=== PATIENT | male | born 1975 | race Hispanic/Latino ===

== ENCOUNTER 2018-01-25 13:36 | Emergency (ER) | payer BC ==
[2018-01-25 15:24] LABS: Absolute Lymphocytes (CBC) 1.9 K/uL (0.7-4.9); Absolute Monocytes 0.5 K/uL (0.1-1.3); Absolute Neutrophil 4.2 K/uL (1.8-8.0); Basophils % 0.4 % (0-1.3); Eosinophils % 1.3 % (0-4.4); Hematocrit 43.7 % (39.6-49.0); Lymphocytes % 28.4 % (15.3-44.8); MCH 30.4 pg (27.0-35.0); MCV 90.7 fL (80-100); MPV 10.2 fL (7.6-11.3); RBC Red Blood Cell Count 4.82 M/uL (4.33-5.43)
--- NOTE | 2018-01-25 15:24 | RAD REPORT ---
EXAM DESCRIPTION: RAD - Chest Single View - 01/25/2018 3:19 pm CLINICAL HISTORY: Chest pain. COMPARISON: 09/30/2014 FINDINGS: Portable technique limits examination quality. The lungs are grossly clear. The heart is normal in size. No displaced fractures. IMPRESSION: No acute intrathoracic process suspected.
[2018-01-25 15:28] LABS: Protime INR 0.98
[2018-01-25 15:31] LABS: Potassium 4.2 mEq/L (3.6-5.0)
[2018-01-25 15:37] LABS: Albumin 3.6 g/dL (3.2-5.5); Bilirubin Direct 0.1 mg/dL (0-0.2); Bilirubin Total 0.7 mg/dL (0.3-1.2); Magnesium 2.1 mg/dL (1.8-2.5); Protein, Total 7.2 g/dL (6.0-8.3)
[2018-01-25 15:38] LABS: CKMB Creatine Kinase MB 0.6 ng/ml (0.3-4.0)
[2018-01-25] MEDS ORDERED: SMZ./TMP. 800/160 MG TABLET ONE (15:41)
[2018-01-25] MEDS ORDERED: DOXYCYCLINE 100 MG CAP PO ONE (15:42)
[2018-01-25] MEDS ORDERED: MUPIROCIN 2% OINT 22GM TUBE TOP ONE (15:42)
[2018-01-25] MEDS ORDERED: NA CHLORIDE 0.9% 1,000 ML ONE ×2 (15:42→16:00)
--- NOTE | 2018-01-25 15:52 | EDPHYS ---
Physician Documentation [facility] Name: Bran Arnold Sr Age: 42 yrs Sex: Male : 1975 Arrival Date: 01/25/2018 Time: 13:41 Bed 13 Private MD: ED Physician Frankie Dennis HPI: 01/25 15:14 This 42 yrs old Male presents to ER via Ambulatory with complaints of SENT BY neymar GUTIERREZ, INFECTION. 15:14 The patient or guardian reports decreased range of motion, pain, swelling, tenderness. neymar The complaints affect the right hand diffusely. Context: The problem was sustained at an unknown location. Onset: The symptoms/episode began/occurred 3 day(s) ago. Modifying factors: The symptoms are alleviated by nothing, the symptoms are aggravated by nothing. Associated signs and symptoms: The patient has no apparent associated signs or symptoms. Severity of symptoms: At their worst the symptoms were mild, moderate, in the emergency department the symptoms are unchanged. Historical: - Allergies: 13:48 No Known Allergies; aj - Home Meds: 13:48 gabapentin Oral [Active]; Tramadol Oral [Active]; Levemir subcutaneous [Active]; aj - PMHx: 13:48 Diabetes - IDDM; neuropathy; aj - PSHx: 13:48 Hernia repair; aj - Immunization history:: Adult Immunizations up to date. - Social history:: Smoking status: Patient/guardian denies using tobacco. - Family history:: not pertinent. ROS: 15:14 Constitutional: Negative for fever, chills, and weight loss, Eyes: Negative for injury, neymar pain, redness, and discharge, ENT: Negative for injury, pain, and discharge, Neck: Negative for injury, pain, and swelling, Cardiovascular: Negative for chest pain, palpitations, and edema, Respiratory: Negative for shortness of breath, cough, wheezing, and pleuritic chest pain, Abdomen/GI: Negative for abdominal pain, nausea, vomiting, diarrhea, and constipation, Back: Negative for injury and pain, : Negative for injury, bleeding, discharge, and swelling, Skin: Negative for injury, rash, and discoloration, Neuro: Negative for headache, weakness, numbness, tingling, and seizure, Psych: Negative for depression, anxiety, suicide ideation, homicidal ideation, and hallucinations, Allergy/Immunology: Negative for hives, rash, and allergies, Endocrine: Negative for neck swelling, polydipsia, polyuria, polyphagia, and marked weight changes, Hematologic/Lymphatic: Negative for swollen nodes, abnormal bleeding, and unusual bruising. 15:14 MS/extremity: Positive for decreased range of motion, pain, tenderness, of the right hand. Exam: 15:14 Constitutional: This is a well developed, well nourished patient who is awake, alert, neymar and in no acute distress. Head/Face: Normocephalic, atraumatic. Eyes: Pupils equal round and reactive to light, extra-ocular motions intact. Lids and lashes normal. Conjunctiva and sclera are non-icteric and not injected. Cornea within normal limits. Periorbital areas with no swelling, redness, or edema. ENT: Nares patent. No nasal discharge, no septal abnormalities noted. Tympanic membranes are normal and external auditory canals are clear. Oropharynx with no redness, swelling, or masses, exudates, or evidence of obstruction, uvula midline. Mucous membranes moist. Neck: Trachea midline, no thyromegaly or masses palpated, and no cervical lymphadenopathy. Supple, full range of motion without nuchal rigidity, or vertebral point tenderness. No Meningismus. Chest/axilla: Normal chest wall appearance and motion. Nontender with no deformity. No lesions are appreciated. Cardiovascular: Regular rate and rhythm with a normal S1 and S2. No gallops, murmurs, or rubs. Normal PMI, no JVD. No pulse deficits. Respiratory: Lungs have equal breath sounds bilaterally, clear to auscultation and percussion. No rales, rhonchi or wheezes noted. No increased work of breathing, no retractions or nasal flaring. Abdomen/GI: Soft, non-tender, with normal bowel sounds. No distension or tympany. No guarding or rebound. No evidence of tenderness throughout. Back: No spinal tenderness. No costovertebral tenderness. Full range of motion. Male : Normal genitalia with no discharge or lesions. Skin: Warm, dry with normal turgor. Normal color with no rashes, no lesions, and no evidence of cellulitis. Neuro: Awake and alert, GCS 15, oriented to person, place, time, and situation. Cranial nerves II-XII grossly intact. Motor strength 5/5 in all extremities. Sensory grossly intact. Cerebellar exam normal. Normal gait. Psych: Awake, alert, with orientation to person, place and time. Behavior, mood, and affect are within normal limits. 15:14 Musculoskeletal/extremity: Extremities: noted in the right hand: erythema, pain, ROM: full active range of motion, full passive range of motion, Circulation is intact in all extremities. Sensation intact. Compartment Syndrome exam of affected extremity: is normal. DVT Exam: No signs of deep vein thrombosis. no swelling, no tenderness, negative Homans' sign noted on exam, no appreciated bluish discoloration, no increased warmth, pain, erythema. Vital Signs: 13:48 BP 103 / 82; Pulse 108; Resp 20; Temp 99.2; Pulse Ox 98% on R/A; Weight 68.04 kg; aj Height 5 ft. 1 in. (154.94 cm); Pain 0/10; 15:30 BP 110 / 82; Pulse 99; Resp 18; Pulse Ox 98% on R/A; ph 17:24 BP 115 / 78; Pulse 91; Resp 18; Temp 98.9; Pulse Ox 99% on R/A; ph 13:48 Body Mass Index 28.34 (68.04 kg, 154.94 cm) aj MDM: 14:05 Patient medically screened. [facility] 15:16 Data reviewed: vital signs, nurses notes, lab test result(s), EKG, radiologic studies, neymar plain films. 01/25 14:49 Order name: Basic Metabolic Panel; Complete Time: 15:44 ph 01/25 14:49 Order name: BNP; Complete Time: 15:44 ph 01/25 14:49 Order name: CBC with Diff; Complete Time: 15:44 ph 01/25 14:49 Order name: Ckmb; Complete Time: 15:44 ph 01/25 14:49 Order name: CPK; Complete Time: 15:44 ph 01/25 14:49 Order name: LFT's; Complete Time: 15:44 ph 01/25 14:49 Order name: Magnesium; Complete Time: 15:44 ph 01/25 14:49 Order name: PT-INR; Complete Time: 15:44 ph 01/25 14:49 Order name: Ptt, Activated; Complete Time: 15:44 ph 01/25 14:49 Order name: Troponin (emerg Dept Use Only); Complete Time: 15:44 ph 01/25 14:49 Order name: Blood Culture Adult (2) ph 01/25 14:49 Order name: Procalcitonin ph 01/25 14:49 Order name: Lactate; Complete Time: 15:44 ph 01/25 16:57 Order name: Glucose, Ancillary Testing EDMS 01/25 14:49 Order name: XRAY Chest (1 view); Complete Time: 15:44 ph 01/25 14:49 Order name: EKG; Complete Time: 14:50 ph 01/25 14:49 Order name: Cardiac monitoring; Complete Time: 15:16 ph 01/25 14:49 Order name: EKG - Nurse/Tech ph 01/25 14:49 Order name: IV Saline Lock; Complete Time: 15:16 ph 01/25 14:49 Order name: Labs collected and sent; Complete Time: 15:16 ph 01/25 14:49 Order name: O2 Per Protocol; Complete Time: 15:16 ph 01/25 14:49 Order name: O2 Sat Monitoring; Complete Time: 15:17 ph Administered Medications: 15:51 Drug: Bactrim (160 mg-800 mg (DS) 1 tablet Route: PO; ph 17:21 Follow up: Response: No adverse reaction ph 15:51 Drug: Doxycycline 200 mg Route: PO; ph 17:22 Follow up: Response: No adverse reaction ph 15:52 Drug: NS 0.9% 1000 ml Route: IV; Rate: 1 bolus; Site: left forearm; ph 17:22 Follow up: Response: No adverse reaction; IV Status: Completed infusion ph 15:54 Drug: Bactroban Ointment 2 % 1 application {Note: applied to R hand.} Route: Topical; ph Site: affected area; 17:22 Follow up: Response: No adverse reaction ph 16:05 Drug: Insulin Regular Human 10 units {Co-Signature: rb1 (Suyapa Contreras RN).} Route: ph IVP; Site: left forearm; 17:23 Follow up: Response: No adverse reaction; Blood sugar is lowered ph 16:05 Drug: Insulin Regular Human 10 units {Co-Signature: rb1 (Suyapa Contreras RN).} Route: ph Sub-Q; Site: right upper arm; 17:23 Follow up: Response: No adverse reaction; Blood sugar is lowered ph 17:21 Not Given (Other Intervention Used): NS 0.9% 1000 ml IV at 1 bolus Per protocol; 1000 ph mL bolus Disposition: 01/25/18 15:51 Discharged to Home. Impression: Cellulitis and acute lymphangitis of other parts of limb - hand, Type 1 diabetes mellitus. - Condition is Stable. - Discharge Instructions: Type 1 Diabetes Mellitus, Adult, Cellulitis, [id number]. - Prescriptions for Bactroban 2 % Topical Ointment - Apply to affected area 1 application by TOPICAL route every 12 hours; 30 gram. Doxycycline Hyclate 100 mg Oral Tablet - take 1 tablet by ORAL route every 12 hours; 20 tablet. Bactrim DS 800- 160 mg Oral Tablet - take 1 tablet by ORAL route every 12 hours for 10 days; 20 tablet. - Medication Reconciliation Form, Thank You Letter, Antibiotic Education, Prescription Opioid Use, Work release form, Family Work Release form. - Follow up: Private Physician; When: 2 - 3 days; Reason: Recheck today's complaints, Continuance of care, Re-evaluation by your physician. Follow up: A Poe; When: 2 - 3 days; Reason: Recheck today's complaints, Continuance of care, Re-evaluation by your physician. - Problem is new. - Symptoms have improved. Signatures: Dispatcher [employer] EDAzalea Nicholson RN RN aj Anderson, Corey, MD MD cha Hall, Patricia, RN RN ph Suyapa Contreras RN rb1 Corrections: (The following items were deleted from the chart) 17:25 15:51 01/25/2018 15:51 Discharged to Home. Impression: Cellulitis and acute ph lymphangitis of other parts of limb - hand; Type 1 diabetes mellitus. Condition is Stable. Discharge Instructions: Type 1 Diabetes Mellitus, Adult, Cellulitis, [id number]. Prescriptions for Bactroban 2 % Topical Ointment - Apply to affected area 1 application by TOPICAL route every 12 hours; 30 gram, Doxycycline Hyclate 100 mg Oral Tablet - take 1 tablet by ORAL route every 12 hours; 20 tablet, Bactrim DS 800-160 mg Oral Tablet - take 1 tablet by ORAL route every 12 hours for 10 days; 20 tablet. and Forms are Medication Reconciliation Form, Thank You Letter, Antibiotic Education, Prescription Opioid Use. Follow up: Private Physician; When: 2 - 3 days; Reason: Recheck today's complaints, Continuance of care, Re-evaluation by your physician. Follow up: A Deepika; When: 2 - 3 days; Reason: Recheck today's complaints, Continuance of care, Re-evaluation by your physician. Problem is new. Symptoms have improved. neymar
--- NOTE | 2018-01-25 15:52 | ER ---
Nurse's Notes [facility] Name: Bran Arnold Sr Age: 42 yrs Sex: Male : 1975 Arrival Date: 01/25/2018 Time: 13:41 Bed 13 Private MD: Diagnosis: Cellulitis and acute lymphangitis of other parts of limb-hand;Type 1 diabetes mellitus Presentation: 01/25 13:46 Presenting complaint: Patient states: Red spot on top of right hand for 1 week. Small aj amount of redness moving up hand to forearm. Transition of care: patient was not received from another setting of care. Onset of symptoms was January 18, 2018. Initial Sepsis Screen: Does the patient meet any 2 criteria? No. Patient's initial sepsis screen is negative. Does the patient have a suspected source of infection? No. Patient's initial sepsis screen is negative. Care prior to arrival: None. 13:46 Method Of Arrival: Ambulatory aj 13:46 Acuity: PRESLEY 3 aj Triage Assessment: 13:48 General: Appears in no apparent distress. comfortable, Behavior is calm, cooperative, aj appropriate for age. Pain: Denies pain. Neuro: Level of Consciousness is awake, alert, obeys commands, Oriented to person, place, time, situation, Appropriate for age. Respiratory: Airway is patent Respiratory effort is even, unlabored, Respiratory pattern is regular, symmetrical. Derm: Skin is intact, is healthy with good turgor, Skin is pink, warm \T\ dry. normal, Wound noted dorsum of right hand. Historical: - Allergies: 13:48 No Known Allergies; aj - Home Meds: 13:48 gabapentin Oral [Active]; Tramadol Oral [Active]; Levemir subcutaneous [Active]; aj - PMHx: 13:48 Diabetes - IDDM; neuropathy; aj - PSHx: 13:48 Hernia repair; aj - Immunization history:: Adult Immunizations up to date. - Social history:: Smoking status: Patient/guardian denies using tobacco. - Family history:: not pertinent. Screenin:44 Abuse screen: Denies threats or abuse. Denies injuries from another. Nutritional ph screening: No deficits noted. Tuberculosis screening: No symptoms or risk factors identified. Fall Risk None identified. Assessment: 14:35 General: Appears in no apparent distress. comfortable, slender, well groomed, Behavior ph is calm, cooperative, appropriate for age, Denies fever, feeling ill. Pain: Denies pain. Neuro: Level of Consciousness is awake, alert, obeys commands, Oriented to person, place, time, situation. Cardiovascular: Capillary refill < 3 seconds Patient's skin is warm and dry. Respiratory: Airway is patent Respiratory effort is even, unlabored. GI: Patient currently denies diarrhea, nausea, vomiting. Derm: Skin is healthy with good turgor, Skin is pink, warm \T\ dry. Wound noted dorsum of right hand Wound is small scab noted to back of R hand w/ redness spreading to R wrist. Musculoskeletal: Circulation, motion, and sensation intact. Range of motion: intact in all extremities. 16:00 Reassessment: Patient appears in no apparent distress at this time. Patient and/or ph family updated on plan of care and expected duration. Pain level reassessed. Patient is alert, oriented x 3, equal unlabored respirations, skin warm/dry/pink. D/C pending completion of IV and lower BGL, Patient denies pain at this time. 17:17 Reassessment: Patient appears in no apparent distress at this time. Patient and/or ph family updated on plan of care and expected duration. Pain level reassessed. Patient is alert, oriented x 3, equal unlabored respirations, skin warm/dry/pink. BGL decreased, pt discharged home with family. Vital Signs: 13:48 BP 103 / 82; Pulse 108; Resp 20; Temp 99.2; Pulse Ox 98% on R/A; Weight 68.04 kg; aj Height 5 ft. 1 in. (154.94 cm); Pain 0/10; 15:30 BP 110 / 82; Pulse 99; Resp 18; Pulse Ox 98% on R/A; ph 17:24 BP 115 / 78; Pulse 91; Resp 18; Temp 98.9; Pulse Ox 99% on R/A; ph 13:48 Body Mass Index 28.34 (68.04 kg, 154.94 cm) ED Course: 13:41 Patient arrived in ED. sb2 13:47 Triage completed. aj 13:48 Arm band placed on left wrist. Patient placed in an exam room. aj 14:05 Frankie Dennis MD is Attending Physician. [facility] 14:08 Re Ramirez, RN is Primary Nurse. ph 14:44 Patient has correct armband on for positive identification. Bed in low position. Call ph light in reach. Side rails up X 1. Pulse ox on. NIBP on. Warm blanket given. 15:15 No provider procedures requiring assistance completed. Inserted saline lock: 22 gauge ph in left forearm, using aseptic technique. 15:17 XRAY Chest (1 view) In Process Unspecified. EDMS 15:17 X-ray completed. Portable x-ray completed in exam room. Patient tolerated procedure kp1 well. 15:51 Aubrey Poe MD is Referral Physician. neymar 17:18 IV discontinued, intact, bleeding controlled, No redness/swelling at site. Pressure ph dressing applied. Administered Medications: 15:51 Drug: Bactrim (160 mg-800 mg (DS) 1 tablet Route: PO; ph 17:21 Follow up: Response: No adverse reaction ph 15:51 Drug: Doxycycline 200 mg Route: PO; ph 17:22 Follow up: Response: No adverse reaction ph 15:52 Drug: NS 0.9% 1000 ml Route: IV; Rate: 1 bolus; Site: left forearm; ph 17:22 Follow up: Response: No adverse reaction; IV Status: Completed infusion ph 15:54 Drug: Bactroban Ointment 2 % 1 application {Note: applied to R hand.} Route: Topical; ph Site: affected area; 17:22 Follow up: Response: No adverse reaction ph 16:05 Drug: Insulin Regular Human 10 units {Co-Signature: rb1 (Suyapa Contreras RN).} Route: ph IVP; Site: left forearm; 17:23 Follow up: Response: No adverse reaction; Blood sugar is lowered ph 16:05 Drug: Insulin Regular Human 10 units {Co-Signature: rb1 (Suyapa Contreras RN).} Route: ph Sub-Q; Site: right upper arm; 17:23 Follow up: Response: No adverse reaction; Blood sugar is lowered ph 17:21 Not Given (Other Intervention Used): NS 0.9% 1000 ml IV at 1 bolus Per protocol; 1000 ph mL bolus Outcome: 15:51 Discharge ordered by . neymar 17:18 Discharged to home ambulatory, with family. ph 17:18 Condition: good 17:18 Discharge instructions given to patient, Instructed on discharge instructions, follow up and referral plans. medication usage. 17:25 Patient left the ED. ph Signatures: Dispatcher [employer] Azalea Finnegan RN RN aj Anderson, Corey, MD MD cha Hall, Patricia, RN RN ph Poole, Kathy kp1 Christin Espitia sb2 Suyapa Contreras RN rb1
[2018-01-25] MEDS ORDERED: INSULIN -REGULAR HUMAN 50 UNIT/0.5 ML ML ONE (15:59)
--- NOTE | 2018-01-26 10:31 | EKG ---
Test Date: 2018-01-25 Test Time: 15:03:29 Ice House Supervisor: JAMIE MEASUREMENT RESULTS: Intervals: Rate: 92 KS: 140 QRSD: 96 QT: 354 QTc: 437 [place]: P: 42 KS: 140 QRS: 78 T: 55 INTERPRETIVE STATEMENTS: Normal sinus rhythm Normal ECG Compared to ECG 05/01/2017 20:22:10 Right-axis deviation no longer present Electronically Signed On 01-26-18 10:27:26 CDT by Nile King
== END 2018-01-25 17:25 | disposition home or self-care (01) ==
LOC: ER 13:36
DX: L03.113 Cellulitis of right upper limb (principal); I89.1 Lymphangitis; E10.8 Type 1 diabetes mellitus with unspecified complications
CPT/HCPCS: 36415; 71045; 80048; 80076; 82550; 82553; 82962; 83605; 83735; 83880; 84145; 84484; 85025; 85610; 85730; 87040; 93005; 96361; 96372; 96374; 99284; J7030

== ENCOUNTER 2018-07-02 21:16 | Emergency (ER) | payer BC ==
--- OUTSIDE RECORDS SUMMARY | 2018-07-02 21:17 | XMS REPORT ---
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
--- OUTSIDE RECORDS SUMMARY | 2018-07-02 21:17 | XMS REPORT ---
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 Active mellitus Problem Depression with anxiety F41.8 Active Problem Type 2 diabetes mellitus with other E11.69 Active specified complication Problem Erectile dysfunction, unspecified N52.9 Active erectile dysfunction type Assessment Erectile dysfunction, unspecified N52.9 Active erectile dysfunction type 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 Assessment Depression with anxiety F41.8 Active Assessment Decreased libido R68.82 Active Assessment 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 Active mellitus Medications Medication Code Code Instructions Start End Status Dosage System Date Date Gabapentin ND 01637001355 800 MG Orally Active 1 tablet Twice a day NovoLog ND 81291082253 100 UNIT/ML Inactive not Subcutaneous defined Jardiance ND 81108237920 10 MG Orally March 02May Active 1 tablet Once a day 2017 Tresiba ND 23204177664 200 UNIT/ML March 02 Inject 60 FlexTouch Subcutaneous 2018 units once a day Atorvastatin ND 60558895541 10 MG Orally March 02, Active 1 tablet Calcium Once a day 2017 Fluoxetine HCl ND 63811999304 40 MG Orally Active 1 capsule Once a day Levemir ND 15955180144 100 UNIT/ML Inactive not Subcutaneous defined Metformin HCl ND 98679473507 1000 MG Orally Active 1 tablet Twice a day with a meal Results No Known Results Summary Purpose [employer] Submission
--- OUTSIDE RECORDS SUMMARY | 2018-07-02 21:17 | XMS REPORT ---
:1975 Author Organization [employer] Care Team Providers Name Role Phone Rudolph Santa Provider Role Unavailable Allergies, Adverse Reactions, Alerts Substance Reaction Event Type N.K.D.A. 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 01483240034 100 UNIT/ML Active not Subcutaneous defined Fluoxetine HCl [facility] 75982486526 40 MG Orally Active 1 capsule Once a day NovoLog ND 52762691113 100 UNIT/ML Active not Subcutaneous defined Gabapentin [facility] 79012646331 800 MG Orally Active 1 tablet Twice a day Results No Known Results Summary Purpose [employer] Submission
--- OUTSIDE RECORDS SUMMARY | 2018-07-02 21:18 | XMS REPORT ---
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
--- OUTSIDE RECORDS SUMMARY | 2018-07-02 21:18 | XMS REPORT ---
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
--- OUTSIDE RECORDS SUMMARY | 2018-07-02 21:18 | XMS REPORT ---
:1975 Author Organization eClinicalWorks Care Team Providers Name Role Phone Rudolph Santa Provider Role Unavailable Allergies No Known Allergies Problems Problem Type Condition Code Onset Dates Condition Status Problem Depression with anxiety F41.8 Active Problem Type 2 diabetes mellitus with other E11.69 Active specified complication Problem Erectile dysfunction, unspecified N52.9 Active erectile dysfunction type Problem Incontinence of feces, unspecified R15.9 Active fecal incontinence type Assessment Erectile dysfunction, unspecified N52.9 Active erectile dysfunction type Problem Abnormal ejaculation N53.19 Active Assessment Depression with anxiety F41.8 Active Assessment Abnormal ejaculation N53.19 Active Problem Generalized abdominal pain R10.84 Active Problem Decreased libido R68.82 Active Problem Type 2 diabetes mellitus with E11.65 Active hyperglycemia Problem Genitourinary disorder N39.9 Active Problem Mixed hyperlipidemia E78.2 Active Assessment Mixed hyperlipidemia E78.2 Active Assessment Generalized abdominal pain R10.84 Active 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 Assessment Decreased libido R68.82 Active Assessment Type 2 diabetes mellitus with other E11.69 Active specified complication Assessment Incontinence of feces, unspecified R15.9 Active fecal incontinence type Problem 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 Active mellitus Assessment Genitourinary disorder N39.9 Active Assessment 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 Active mellitus Problem longterm current use of insulin Z79.4 Active Medications Medication Code Code Instructions Start End Status Dosage System Date Date [facility] 18276310884 200 UNIT/ML Active Inject 60 FlexTouch Subcutaneous units once a day Atorvastatin ND 87424190726 20 MG Orally Active 1 tablet Calcium Once a day Gabapentin ND 16882815147 800 MG Orally Active 1 tablet Three a day Jardiance [facility] [place] 65982355473 10 MG Orally May 03, Inactive 1 tablet Once a day 2017 Metformin HCl ND 15833515047 1000 MG Orally Active 0.5 tab Twice a day with a meal Farxiga ND 75114174423 10mg By Mouth Aug 01, Active 1 Daily 2018 Fluoxetine HCl [facility] 70013926167 40 MG Orally Inactive 1 capsule Once a day Results No Known Results Summary Purpose eClinicalWorks Submission
--- OUTSIDE RECORDS SUMMARY | 2018-07-02 21:18 | XMS REPORT ---
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
--- OUTSIDE RECORDS SUMMARY | 2018-07-02 21:18 | XMS REPORT ---
:1975 Author Organization eClinicalWorks Care Team Providers Name Role Phone Rudolph Santa Provider Role Unavailable Allergies No Known Allergies Problems Problem Type Condition Code Onset Dates Condition Status Problem snf current use of insulin Z79.4 Active Problem [...] Medications Results No Known Results Summary Purpose eClinicalWorks Submission
--- OUTSIDE RECORDS SUMMARY | 2018-07-02 21:18 | XMS REPORT ---
:1975 Author Organization eClinicalWorks Care Team Providers Name Role Phone Rudolph Santa Provider Role Unavailable Allergies No Known Allergies Problems Problem Type Condition Code Onset Dates Condition Status Problem assisted current use of insulin Z79.4 Active Problem [...] Medications Medication Code System Code Instructions Start Date End Date Status Dosage Farxiga [facility] 78158478173 10mg By Mouth Active 1 Daily Results No Known Results Summary Purpose eClinicalWorks Submission
[2018-07-02] MEDS ORDERED: NA CHLORIDE 0.9% 1,000 ML ONE (22:05)
[2018-07-02] MEDS ORDERED: ONDANSETRON 4 MG/2 ML VIAL ONE (22:05)
[2018-07-02] MEDS ORDERED: MORPHINE 4 MG/ML SYR ONE (22:05)
[2018-07-02 22:29] LABS: Absolute Lymphocytes (CBC) 0.8 K/uL (0.7-4.9); Absolute Monocytes 0.7 K/uL (0.1-1.3); Absolute Neutrophil 7.4 K/uL (1.8-8.0); Basophils % 0.2 % (0-1.3); Eosinophils % 0.3 % (0-4.4); Hematocrit 43.4 % (39.6-49.0); Lymphocytes % 8.7 % (15.3-44.8); MCH 31.1 pg (27.0-35.0); MCV 89.3 fL (80-100); Monocytes % 7.6 % (3.3-12.3); RBC Red Blood Cell Count 4.86 M/uL (4.33-5.43)
[2018-07-02 22:29] LABS: Urine Blood NEGATIVE (NEG); Urine Glucose 2+ (NEG); Urine Protein NEGATIVE (NEG); Urine pH 5.5 (5.0-7.0)
[2018-07-02 22:39] LABS: Albumin 3.3 g/dL (3.4-5.0); Bilirubin Direct 0.1 mg/dL (0-0.2); Bilirubin Total 0.4 mg/dL (0.2-1.0); Potassium 3.7 mmol/L (3.5-5.1); Protein, Total 7.1 g/dL (6.4-8.2)
--- NOTE | 2018-07-02 23:59 | ER ---
Nurse's Notes [facility] Name: Bran Arnold Sr Age: 42 yrs Sex: Male : 1975 Arrival Date: 07/02/2018 Time: 21:18 Bed 7 Private MD: Rudolph Santa Diagnosis: Diarrhea, unspecified Presentation: 07/02 21:42 Presenting complaint: Patient states: last night he started having diarrhea and kr2 abdominal pain. He also has very bad anxiety. Transition of care: patient was not received from another setting of care. Onset of symptoms was July 01, 2018. Risk Assessment: Do you want to hurt yourself or someone else? Patient reports no desire to harm self or others. Initial Sepsis Screen: Does the patient meet any 2 criteria? No. Patient's initial sepsis screen is negative. Does the patient have a suspected source of infection? No. Patient's initial sepsis screen is negative. Care prior to arrival: None. 21:42 Method Of Arrival: Ambulatory kr2 21:42 Acuity: PRESLEY 3 kr2 Triage Assessment: 21:50 General: Appears in no apparent distress. uncomfortable, slender, well groomed, well kr2 developed, well nourished, Behavior is calm, cooperative, appropriate for age, Patient states he feels anxious and does have a history of anxiety. He states, "I have been in so much pain because of my neuropathy that I have thought about ending it all in the past." Patient denies suicidal ideation or thoughts of harming anyone else at this time, states,"I am not going to do anything like that.". Pain: Complains of pain in right upper quadrant and left upper quadrant Pain radiates to mid back area Pain currently is 8 out of 10 on a pain scale. Quality of pain is described as aching, sharp, shooting, Is continuous, Alleviated by nothing. Aggravated by eating, increased activity. EENT: Oral mucosa is moist. Neuro: Level of Consciousness is awake, alert, obeys commands, Oriented to person, place, time, situation. Cardiovascular: Capillary refill < 3 seconds in bilateral fingers Patient's skin is warm and dry. Respiratory: Airway is patent Respiratory effort is even, unlabored, Respiratory pattern is regular, symmetrical. GI: Abdomen is flat, non-distended, Bowel sounds present X 4 quads. Abd is soft and non tender X 4 quads. Reports diarrhea. : Denies burning with urination. Derm: Skin is intact, is healthy with good turgor, Skin is pink, warm \\T\\ dry. Musculoskeletal: Circulation, motion, and sensation intact. Historical: - Allergies: 21:50 No Known Allergies; kr2 - Home Meds: 21:50 gabapentin Oral [Active]; hyoscyamine sulfate 0.125 mg SL subl [Active]; Farxiga 10 mg kr2 oral tab 1 tab once daily [Active]; atorvastatin 20 mg oral tab 1 tab once daily [Active]; dicyclomine 20 mg Oral tab 1 tab 3 times per day [Active]; Tresiba FlexTouch U-200 200 unit/mL (3 mL) subcutaneous inpn [Active]; - PMHx: 21:50 Diabetes - IDDM; neuropathy; Anxiety; Depression; kr2 - PSHx: 21:50 Hernia repair; kr2 - Immunization history:: Adult Immunizations unknown. - Social history:: Smoking status: Patient/guardian denies using tobacco. - Ebola Screening: : No symptoms or risks identified at this time. Screenin:50 Abuse screen: Denies threats or abuse. Denies injuries from another. Nutritional kr2 screening: No deficits noted. Tuberculosis screening: No symptoms or risk factors identified. Fall Risk None identified. Assessment: 22:17 Reassessment: See triage assessment. kr2 22:23 Reassessment: Patient appears in no apparent distress at this time. Patient and/or kr2 family updated on plan of care and expected duration. Pain level reassessed. Patient is alert, oriented x 3, equal unlabored respirations, skin warm/dry/pink. Patient asking for something to drink, explained that he cannot not have anything to eat or drink until after the results of his CT and blood work. Offered lemon glycerin swabs but patient refused. 23:19 General: Appears in no apparent distress. comfortable, Behavior is calm, cooperative, ao appropriate for age. Pain: Denies pain. Neuro: Level of Consciousness is awake, alert, obeys commands, Oriented to person, place, time, situation, Appropriate for age Moves all extremities. Full function Speech is normal, Facial symmetry appears normal. Cardiovascular: Capillary refill < 3 seconds Patient's skin is warm and dry. Respiratory: Airway is patent Respiratory effort is even, unlabored, Respiratory pattern is regular, symmetrical. GI: Abdomen is non-distended. : No signs and/or symptoms were reported regarding the genitourinary system. EENT: No signs and/or symptoms were reported regarding the EENT system. Derm: Skin is intact, Skin is pink, warm \\T\\ dry. normal, Skin temperature is warm. Musculoskeletal: Circulation, motion, and sensation intact. Range of motion: intact in all extremities. Vital Signs: 21:45 BP 107 / 75 LA Supine (auto/reg); Pulse 108; Resp 16 S; Temp 99(O); Pulse Ox 97% on jp3 R/A; Pain 7/10; 22:23 BP 112 / 82; Pulse 102; Resp 18; Pulse Ox 100% on R/A; kr2 23:22 BP 103 / 82; Pulse 103; Resp 18; Pulse Ox 100% ; Pain 0/10; ao 07/03 00:07 BP 103 / 69; Pulse 101; Resp 18; Pulse Ox 100% on R/A; ak1 ED Course: 07/02 21:18 Patient arrived in ED. as 21:18 Rudolph Santa DO is Private Physician. as 21:38 Pablo Lowry MD is Attending Physician. gs 21:42 Mercy Sol, CRYS is Primary Nurse. kr2 21:44 Triage completed. kr2 21:48 Bed in low position. Call light in reach. Side rails up X 1. Side rails up X2. Warm jp3 blanket given. Pulse ox on. NIBP on. 21:55 Arm band placed on. kr2 22:05 Inserted saline lock: 20 gauge in right forearm, using aseptic technique. Blood kr2 collected. 22:12 Urine collected: clean catch specimen, clear, omar colored, Amount Voided: 60mL. jp3 22:23 Radiology exam delayed due to lab results not completed at this time. (BUN/Creatinine). vr 22:[address] nj 22:53 CT completed. Patient tolerated procedure well. Patient moved back from CT. nj 22:53 CT Abd/Pelvis - W/Contrast In Process Unspecified. EDMS 23:21 Report received from CRYS Ricardo. ao 23:55 Kobe Erickson MD is Referral Physician. gs 07/03 00:07 No provider procedures requiring assistance completed. ak1 00:19 IV discontinued, intact, bleeding controlled, No redness/swelling at site. Pressure ao dressing applied. Administered Medications: 07/02 22:07 Drug: Zofran 4 mg Route: IVP; Site: right forearm; kr2 07/03 00:10 Follow up: Response: No adverse reaction ak1 07/02 22:09 Drug: NS 0.9% 1000 ml Route: IV; Rate: 1 bolus; Site: right forearm; kr2 07/03 00:10 Follow up: IV Status: Completed infusion ak1 07/02 22:09 Drug: morphine 4 mg Route: IVP; Site: right forearm; kr2 07/03 00:10 Follow up: Response: No adverse reaction ak1 Outcome: 07/02 23:58 Discharge ordered by . korina 07/03 00:09 Condition: stable ak1 00:19 Discharged to home ambulatory. ao 00:19 Discharge instructions given to patient. 00:20 Patient left the ED. ao Signatures: Dispatcher [employer] EDMS Gloria Zurita Victoria vr Krenek, Amber, RN RN ak1 Sean Marinelli RN RN ao Jordan, Nathan nj Starr, Gregory, MD MD gs Reaves, Karey, RN RN gilbert2 Roderick Oviedo jp3
--- NOTE | 2018-07-02 23:59 | EDPHYS ---
Physician Documentation [facility] Name: Bran Arnold Sr Age: 42 yrs Sex: Male : 1975 Arrival Date: 07/02/2018 Time: 21:18 Bed 7 Private MD: Joie Santah ED Physician Pablo Lowry HPI: 07/02 23:51 This 42 yrs old Male presents to ER via Ambulatory with complaints of gs Diarrhea, Abdominal Pain. 23:51 Onset: The symptoms/episode began/occurred 1 week(s) ago, and became worse and became gs persistent. Possible causes: flare up of bowel problem. The symptoms are aggravated by nothing. The symptoms are alleviated by nothing. Associated signs and symptoms: Pertinent negatives: fever. Severity of symptoms: At their worst the symptoms were moderate in the emergency department the symptoms are unchanged. The patient has experienced similar episodes in the past, chronically. The patient has not recently seen a physician. Historical: - Allergies: 21:50 No Known Allergies; kr2 - Home Meds: 21:50 gabapentin Oral [Active]; hyoscyamine sulfate 0.125 mg SL subl [Active]; Farxiga 10 mg kr2 oral tab 1 tab once daily [Active]; atorvastatin 20 mg oral tab 1 tab once daily [Active]; dicyclomine 20 mg Oral tab 1 tab 3 times per day [Active]; Tresiba FlexTouch U-200 200 unit/mL (3 mL) subcutaneous inpn [Active]; - PMHx: 21:50 Diabetes - IDDM; neuropathy; Anxiety; Depression; kr2 - PSHx: 21:50 Hernia repair; kr2 - Immunization history:: Adult Immunizations unknown. - Social history:: Smoking status: Patient/guardian denies using tobacco. - Ebola Screening: : No symptoms or risks identified at this time. ROS: 23:51 All other systems are negative. gs Exam: 23:51 Head/Face: Normocephalic, atraumatic. Eyes: Pupils equal round and reactive to light, gs extra-ocular motions intact. Lids and lashes normal. Conjunctiva and sclera are non-icteric and not injected. Cornea within normal limits. Periorbital areas with no swelling, redness, or edema. ENT: Nares patent. No nasal discharge, no septal abnormalities noted. Tympanic membranes are normal and external auditory canals are clear. Oropharynx with no redness, swelling, or masses, exudates, or evidence of obstruction, uvula midline. Mucous membranes moist. Neck: Trachea midline, no thyromegaly or masses palpated, and no cervical lymphadenopathy. Supple, full range of motion without nuchal rigidity, or vertebral point tenderness. No Meningismus. Chest/axilla: Normal chest wall appearance and motion. Nontender with no deformity. No lesions are appreciated. Cardiovascular: Regular rate and rhythm with a normal S1 and S2. No gallops, murmurs, or rubs. Normal PMI, no JVD. No pulse deficits. Respiratory: Lungs have equal breath sounds bilaterally, clear to auscultation and percussion. No rales, rhonchi or wheezes noted. No increased work of breathing, no retractions or nasal flaring. Back: No spinal tenderness. No costovertebral tenderness. Full range of motion. Skin: Warm, dry with normal turgor. Normal color with no rashes, no lesions, and no evidence of cellulitis. MS/ Extremity: Pulses equal, no cyanosis. Neurovascular intact. Full, normal range of motion. Neuro: Awake and alert, GCS 15, oriented to person, place, time, and situation. Cranial nerves II-XII grossly intact. Motor strength 5/5 in all extremities. Sensory grossly intact. Cerebellar exam normal. Normal gait. 23:51 Constitutional: The patient appears alert, awake. 23:51 Abdomen/GI: Palpation: moderate abdominal tenderness, in all quadrants, rebound tenderness, is not appreciated. Vital Signs: 21:45 BP 107 / 75 LA Supine (auto/reg); Pulse 108; Resp 16 S; Temp 99(O); Pulse Ox 97% on jp3 R/A; Pain 7/10; 22:23 BP 112 / 82; Pulse 102; Resp 18; Pulse Ox 100% on R/A; kr2 23:22 BP 103 / 82; Pulse 103; Resp 18; Pulse Ox 100% ; Pain 0/10; ao 16 00:07 BP 103 / 69; Pulse 101; Resp 18; Pulse Ox 100% on R/A; ak1 MDM: 07/02 21:44 Patient medically screened. gs 23:51 Differential diagnosis: Nonspecific abd pain, diverticulitis, viral gastroenteritis, gs gastroenteritis. Data reviewed: vital signs, nurses notes. Counseling: I had a detailed discussion with the patient and/or guardian regarding: the historical points, exam findings, and any diagnostic results supporting the discharge/admit diagnosis, the need for outpatient follow up. Response to treatment: the patient's symptoms have markedly improved after treatment, and as a result, I will discharge patient. 07/02 21:54 Order name: Basic Metabolic Panel; Complete Time: 22:43 gs 07/02 21:54 Order name: CBC with Diff; Complete Time: 22:43 07/02 21:54 Order name: Hepatic Function; Complete Time: 22:43 07/02 21:54 Order name: Lipase; Complete Time: 22:43 07/02 21:54 Order name: CT Abd/Pelvis - W/Contrast 07/02 22:18 Order name: Urine Dipstick--Ancillary (enter results); Complete Time: 22:43 [facility] 07/02 21:54 Order name: IV Saline Lock; Complete Time: 22:16 07/02 21:54 Order name: Labs collected and sent; Complete Time: 22:16 gs Administered Medications: 22:07 Drug: Zofran 4 mg Route: IVP; Site: right forearm; 2 07/03 00:10 Follow up: Response: No adverse reaction ar1 07/02 22:09 Drug: NS 0.9% 1000 ml Route: IV; Rate: 1 bolus; Site: right forearm; kr2 07/03 00:10 Follow up: IV Status: Completed infusion ak1 07/02 22:09 Drug: morphine 4 mg Route: IVP; Site: right forearm; 2 07/03 00:10 Follow up: Response: No adverse reaction ar1 Disposition: 07/02/18 23:58 Discharged to Home. Impression: Diarrhea, unspecified. - Condition is Stable. - Discharge Instructions: Diarrhea, Adult. - Work release form, Medication Reconciliation Form, Thank You Letter, Antibiotic Education, Prescription Opioid Use form. - Follow up: Kobe Erickson MD; When: 2 - 3 days; Reason: Re-evaluation by your physician. Signatures: Dispatcher [employer] Sean Cummings RN RN ao Starr, Gregory, MD MD gs Reaves, Karey, RN RN kr2 Carol Lofton RN ak1 Corrections: (The following items were deleted from the chart) 00:20 07/02 23:58 07/02/2018 23:58 Discharged to Home. Impression: Diarrhea, unspecified. ao Condition is Stable. Forms are Medication Reconciliation Form, Thank You Letter, Antibiotic Education, Prescription Opioid Use. Follow up: Kobe Erickson; When: 2 - 3 days; Reason: Re-evaluation by your physician. gs
--- NOTE | 2018-07-03 08:16 | RAD REPORT ---
EXAM DESCRIPTION: CTAbdomen Pelvis W Contrast - 07/03/2018 5:35 am CLINICAL HISTORY: Abdominal pain. ABD PAIN COMPARISON: No comparisons TECHNIQUE: Biphasic CT imaging of the abdomen and pelvis was performed with 100 ml non-ionic IV cont rast. All CT scans are performed using dose optimization technique as appropriate and may include automated exposure control or mA/KV adjustment according to patient size. FINDINGS: The lung bases are clear.Mild dilatation of the distal esophagus. The liver, spleen, pancreas, adrenal glands and kidneys are within normal limits. No bowel obstruction, free air, free fluid or abscess. The appendix is normal. No evidence of signi ficant lymphadenopathy. No suspicious bony findings. Mild urinary bladder wall thickening suspected. IMPRESSION: No acute intra-abdominal or pelvic finding. Mild urinary the wall thickening is suspected.
== END 2018-07-03 00:20 | disposition home or self-care (01) ==
LOC: ER 21:16
DX: R19.7 Diarrhea, unspecified (principal); E11.9 Type 2 diabetes mellitus without complications; F41.9 Anxiety disorder, unspecified; F32.9 Major depressive disorder, single episode, unspecified; Z79.4 Long term (current) use of insulin
CPT/HCPCS: 36415; 74177; 80048; 80076; 81003; 83690; 85025; 96361; 96374; 96375; 99284; J2405; J7030

== ENCOUNTER 2019-02-05 13:19 | Emergency (ER) | payer BC ==
--- OUTSIDE RECORDS SUMMARY | 2019-02-05 13:22 | XMS REPORT ---
:1975 Author Organization eClinicalWorks Care Team Providers Name Role Phone Rudolph Santa Provider Role Unavailable Allergies No Known Allergies Problems Problem Type Condition Code Onset Dates Condition Status Problem jail current use of insulin Z79.4 Active Problem [...]
--- OUTSIDE RECORDS SUMMARY | 2019-02-05 13:22 | XMS REPORT ---
:1975 Author Organization eClinicalWorks Care Team Providers Name Role Phone Rudolph Santa Provider Role Unavailable Allergies No Known Allergies Problems Problem Type Condition Code Onset Dates Condition Status Problem [facility] current use of insulin Z79.4 Active Problem [...] Start Date End Date Status Dosage Farxiga [facility] 22353670345 10mg By Mouth Active 1 Daily Results No Known Results Summary Purpose eClinicalWorks Submission
--- OUTSIDE RECORDS SUMMARY | 2019-02-05 13:22 | XMS REPORT ---
[...] to secondary diabetes E13.40 Active mellitus Problem [facility] current use of insulin Z79.4 Active Problem [...] unspecified N52.9 Active erectile dysfunction type Assessment [facility] current use of insulin Z79.4 Active Medications Medication Code Code Instructions Start End Status Dosage System Date Date Levemir [facility] 64446336914 100 UNIT/ML Active not Subcutaneous defined Fluoxetine HCl [facility] 55128789790 40 MG Orally Active 1 capsule Once a day NovoLog ND 92684713592 100 UNIT/ML Active not Subcutaneous defined Gabapentin [facility] 88634203504 800 MG Orally Active 1 tablet Twice a day Results No Known Results Summary Purpose eClinicalWorks Submission
--- OUTSIDE RECORDS SUMMARY | 2019-02-05 13:22 | XMS REPORT ---
:1975 Author Organization [facility] Care Team Providers Name Role Phone Rudolph Santa Provider Role Unavailable Allergies No Known Allergies Problems Problem Type Condition Code Onset Dates Condition Status Problem manager terminal current use of insulin Z79.4 Active Problem [...] Medications Results No Known Results Summary Purpose [facility] Submission
--- OUTSIDE RECORDS SUMMARY | 2019-02-05 13:22 | XMS REPORT ---
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
--- OUTSIDE RECORDS SUMMARY | 2019-02-05 13:22 | XMS REPORT ---
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 Active mellitus Medications Medication Code Code Instructions Start End Status Dosage System Date Date Gabapentin ND 65025872841 800 MG Orally Active 1 tablet Twice a day NovoLog ND 90671226343 100 UNIT/ML Inactive not Subcutaneous defined Jardiance ND 29019473558 10 MG Orally March 02May Active 1 tablet Once a day 2017 Tresiba ND 91576875413 200 UNIT/ML March 02 Inject 60 FlexTouch Subcutaneous 2018 units once a day Atorvastatin ND 62995076087 10 MG Orally March 02, Active 1 tablet Calcium Once a day 2017 Fluoxetine HCl ND 27016111477 40 MG Orally Active 1 capsule Once a day Levemir ND 76267832033 100 UNIT/ML Inactive not Subcutaneous defined Metformin HCl ND 80869641339 1000 MG Orally Active 1 tablet Twice a day with a meal Results No Known Results Summary Purpose eClinicalWorks Submission
--- OUTSIDE RECORDS SUMMARY | 2019-02-05 13:22 | XMS REPORT ---
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
--- OUTSIDE RECORDS SUMMARY | 2019-02-05 13:22 | XMS REPORT ---
[...] NDC 0 Active not defined Farxiga NDC 48872887865 10mg By Mouth Active 1 Daily Results No Known Results Summary Purpose eClinicalWorks Submission
--- OUTSIDE RECORDS SUMMARY | 2019-02-05 13:23 | XMS REPORT ---
:1975 Author Organization eClinicalWorks Care Team Providers Name Role Phone SantaRudolph Provider Role Unavailable Allergies, Adverse Reactions, Alerts [...] unspecified R15.9 Active fecal incontinence type Assessment Non-compliant behavior R46.89 Active Problem Abnormal ejaculation N53.19 Active Problem Generalized abdominal pain R10.84 Active Problem Decreased libido R68.82 Active Problem Type 2 diabetes mellitus with E11.65 Active hyperglycemia Problem Genitourinary disorder N39.9 Active Problem Mixed hyperlipidemia E78.2 Active Assessment Decreased libido R68.82 Active Assessment Depression with anxiety F41.8 Active Assessment Erectile dysfunction, unspecified N52.9 Active erectile dysfunction type Assessment USP current use of insulin Z79.4 Active Assessment Type 2 diabetes mellitus with other E11.69 Active specified complication Assessment Mixed hyperlipidemia E78.2 Active Problem 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 Active mellitus Assessment 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 Active mellitus Problem 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 max 1.8 mg/day Farxiga [facility] 11618986146 10mg By Mouth Active 1 Daily Gabapentin [facility] 98162536370 800 MG Orally Active 1 tablet Three times a day Duloxetine HCl [facility] 83315756023 60 MG Orally November Active 1 capsule Once a day 2018 Tresiba [facility] 36688231846 200 UNIT/ML Active Inject 60 FlexTouch Subcutaneous units once a day Trazodone HCl [facility] 78253436534 50 MG Orally Active 1 tablet Once a day at bedtime as needed Atorvastatin [facility] 70644023607 20 MG Orally Active 1 tablet Calcium Once a day Results Name Result Date Reference Range Unit Abnormality Flag HEMOGLOBIN A1C ----A1C 10.6 [id number] Summary Purpose eClinicalWorks Submission
--- OUTSIDE RECORDS SUMMARY | 2019-02-05 13:23 | XMS REPORT ---
:1975 Author Organization [employer]Works Care Team Providers Name Role Phone Kiet Rudolph Provider Role Unavailable Allergies, Adverse Reactions, Alerts [...] dysfunction type Problem Abnormal ejaculation N53.19 Active Problem Generalized abdominal pain R10.84 Active Problem Decreased libido R68.82 Active Problem Type 2 diabetes mellitus with E11.65 Active hyperglycemia Problem Genitourinary disorder N39.9 Active Problem Mixed hyperlipidemia E78.2 Active Assessment Decreased libido R68.82 Active Assessment Depression with anxiety F41.8 Active Assessment Incontinence of feces, unspecified R15.9 Active fecal incontinence type Assessment halfway current use of insulin Z79.4 Active Assessment Type 2 diabetes mellitus with other E11.69 Active specified complication Assessment Mixed hyperlipidemia E78.2 Active Problem 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 Active mellitus Assessment 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 Active mellitus 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
--- OUTSIDE RECORDS SUMMARY | 2019-02-05 13:23 | XMS REPORT ---
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 Active Assessment Decreased libido R68.82 Active Assessment Type 2 diabetes mellitus with other E11.69 Active specified complication Assessment Incontinence of feces, unspecified R15.9 Active fecal incontinence type Problem 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 Active mellitus Assessment Genitourinary disorder N39.9 Active Assessment 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 Active mellitus Problem assisted current use of insulin Z79.4 Active Medications Medication Code Code Instructions Start End Status Dosage System Date Date [facility] 44715042255 200 UNIT/ML Active Inject 60 FlexTouch Subcutaneous units once a day Atorvastatin ND 59983024105 20 MG Orally Active 1 tablet Calcium Once a day Gabapentin ND 51523351204 800 MG Orally Active 1 tablet Three a day Jardiance [facility] 53374358608 10 MG Orally May 03, Inactive 1 tablet Once a day 2017 Metformin HCl ND 77308637959 1000 MG Orally Active 0.5 tab Twice a day with a meal Farxiga ND 07628062159 10mg By Mouth Aug 01, Active 1 Daily 2018 Fluoxetine HCl [facility] 37267955010 40 MG Orally Inactive 1 capsule Once a day Results No Known Results Summary Purpose eClinicalWorks Submission
--- OUTSIDE RECORDS SUMMARY | 2019-02-05 13:23 | XMS REPORT ---
:1975 Author Organization eClinicalWorks Care Team Providers Name Role Phone Rudolph Santa Provider Role Unavailable Allergies No Known Allergies Problems Problem Type Condition Code Onset Dates Condition Status Problem Depression with anxiety F41.8 Active Problem Type 2 diabetes mellitus with other E11.69 Active specified complication Problem Erectile dysfunction, unspecified N52.9 Active erectile dysfunction type Problem 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 Active mellitus Problem [facility] current use of insulin Z79.4 Active Problem Incontinence of feces, unspecified R15.9 Active fecal incontinence type Problem Abnormal ejaculation N53.19 Active Problem Generalized abdominal pain R10.84 Active Problem Decreased libido R68.82 Active Problem Type 2 diabetes mellitus with E11.65 Active hyperglycemia Problem Genitourinary disorder N39.9 Active Problem Mixed hyperlipidemia E78.2 Active Medications No Known Medications Results No Known Results Summary Purpose eClinicalWorks Submission
--- NOTE | 2019-02-05 14:22 | ER ---
Nurse's Notes [facility] Name: Bran Arnold Sr Age: 43 yrs Sex: Male : 1975 Arrival Date: 02/05/2019 Time: 13:22 Bed 23 Private MD: Rudolph Santa Diagnosis: Peripheral Neuropathy;Anxiety Presentation: 02/05 13:36 Presenting complaint: Patient states: Reports "anxiety since taking 2 old Tramadol aj 100mg yesterday. I wasn't able to sleep last night and I have pins and needles in my chest". Transition of care: patient was not received from another setting of care. Onset of symptoms was February 05, 2019. Risk Assessment: Do you want to hurt yourself or someone else? Patient reports no desire to harm self or others. Initial Sepsis Screen: Does the patient meet any 2 criteria? No. Patient's initial sepsis screen is negative. Does the patient have a suspected source of infection? No. Patient's initial sepsis screen is negative. Care prior to arrival: None. 13:36 Method Of Arrival: Ambulatory 13:36 Acuity: PRESLEY 4 aj Triage Assessment: 13:38 General: Appears in no apparent distress. comfortable, Behavior is calm, cooperative, aj appropriate for age. Pain: Denies pain. Neuro: Level of Consciousness is awake, alert, obeys commands, Oriented to person, place, time, situation, Appropriate for age paresthesias in chest. Respiratory: Airway is patent Respiratory effort is even, unlabored, Respiratory pattern is regular, symmetrical. Derm: Skin is intact, is healthy with good turgor, Skin is pink, warm \\T\\ dry. normal. Historical: - Allergies: 13:38 No Known Drug Allergies; aj - Home Meds: 13:38 atorvastatin 20 mg Oral tab 1 tab once daily [Active]; dicyclomine 20 mg Oral tab 1 tab aj 3 times per day [Active]; Farxiga 10 mg Oral tab 1 tab once daily [Active]; gabapentin 800 mg oral tab 3 times per day [Active]; hyoscyamine sulfate 0.125 mg SL subl [Active]; Tresiba FlexTouch U-200 200 unit/mL (3 mL) subcutaneous inpn [Active]; - PMHx: 13:38 Anxiety; Depression; Diabetes - IDDM; neuropathy; aj - PSHx: 13:38 Hernia repair; aj - Immunization history:: Adult Immunizations up to date. - Social history:: Smoking status: Patient/guardian denies using tobacco. - Ebola Screening: : Patient negative for fever greater than or equal to 101.5 degrees Fahrenheit, and additional compatible Ebola Virus Disease symptoms Patient denies exposure to infectious person Patient denies travel to an Ebola-affected area in the 21 days before illness onset No symptoms or risks identified at this time. Screenin:56 Abuse screen: Denies threats or abuse. Denies injuries from another. Nutritional aj1 screening: No deficits noted. Tuberculosis screening: No symptoms or risk factors identified. Fall Risk None identified. Assessment: 14:56 General: Appears in no apparent distress. uncomfortable, Behavior is cooperative, aj1 anxious. Pain: Complains of pain in chest Quality of pain is described as tingling. Neuro: Level of Consciousness is awake, alert, obeys commands, Oriented to person, place, time, situation. Cardiovascular: Patient's skin is warm and dry. Respiratory: Airway is patent. Respiratory: Respiratory effort is even, unlabored, Respiratory pattern is regular, symmetrical. GI: No signs and/or symptoms were reported involving the gastrointestinal system. : No signs and/or symptoms were reported regarding the genitourinary system. EENT: No signs and/or symptoms were reported regarding the EENT system. Derm: No signs and/or symptoms reported regarding the dermatologic system. Skin is pink, warm \\T\\ dry. normal. Musculoskeletal: No signs and/or symptoms reported regarding the musculoskeletal system. Circulation, motion, and sensation intact. Vital Signs: 13:38 BP 106 / 90; Pulse 112; Resp 19; Temp 99.2; Pulse Ox 99% on R/A; Weight 70.31 kg; aj Height 5 ft. 2 in. (157.48 cm); 13:38 Body Mass Index 28.35 (70.31 kg, 157.48 cm) aj ED Course: 13:22 Patient arrived in ED. mr 13:22 Rudolph Santa DO is Private Physician. mr 13:37 Triage completed. aj 13:38 Arm band placed on left wrist. Patient placed in an exam room. aj 13:42 Kaylee Vides RN is Primary Nurse. aj1 13:52 Vaughn Vizcaino MD is Attending Physician. ps1 14:21 Rudolph Santa DO is Referral Physician. ps1 14:56 Patient has correct armband on for positive identification. Bed in low position. Call aj1 light in reach. Side rails up X 1. 14:56 No provider procedures requiring assistance completed. Patient did not have IV access aj1 during this emergency room visit. Administered Medications: No medications were administered Outcome: 14:22 Discharge ordered by MD. ps1 14:56 Discharged to home ambulatory. aj1 14:56 Condition: good 14:56 Discharge instructions given to patient, Instructed on discharge instructions, follow up and referral plans. medication usage, Demonstrated understanding of instructions, follow-up care, medications, Prescriptions given X 2. 14:58 Patient left the ED. aj1 Signatures: Kaylee Vides, CRYS RN Azalea Romero RN RN aj Rivera, Mary mr Vaughn Vizcaino MD MD ps1
--- NOTE | 2019-02-05 14:22 | EDPHYS ---
Physician Documentation [facility] Name: Bran Arnold Sr Age: 43 yrs Sex: Male : 1975 Arrival Date: 02/05/2019 Time: 13:22 Bed 23 Private MD: Kiet [facility] ED Physician Vaughn Vizcaino HPI: 02/05 14:17 This 43 yrs old Male presents to ER via Ambulatory with complaints of Anxiety. ps1 14:17 patient is a known diabetic that is poorly controlled. He states that he does not check ps1 his blood sugar although he is insulin dependant. He states that yesterday his peripheral neuropathy was flaring and he did not have pain medication. He was previously prescribed tramadol and ended up finding (2) 100mg tabs and took them. He felt anxiety over his situation and had a panic attack. He was unable to get an appointment with his doctor so he came in for evaluation. Daughter at bedside. No SI/HI complaints. . Historical: - Allergies: 13:38 No Known Drug Allergies; aj - Home Meds: 13:38 atorvastatin 20 mg Oral tab 1 tab once daily [Active]; dicyclomine 20 mg Oral tab 1 tab aj 3 times per day [Active]; Farxiga 10 mg Oral tab 1 tab once daily [Active]; gabapentin 800 mg oral tab 3 times per day [Active]; hyoscyamine sulfate 0.125 mg SL subl [Active]; Tresiba FlexTouch U-200 200 unit/mL (3 mL) subcutaneous inpn [Active]; - PMHx: 13:38 Anxiety; Depression; Diabetes - IDDM; neuropathy; aj - PSHx: 13:38 Hernia repair; aj - Immunization history:: Adult Immunizations up to date. - Social history:: Smoking status: Patient/guardian denies using tobacco. - Ebola Screening: : Patient negative for fever greater than or equal to 101.5 degrees Fahrenheit, and additional compatible Ebola Virus Disease symptoms Patient denies exposure to infectious person Patient denies travel to an Ebola-affected area in the 21 days before illness onset No symptoms or risks identified at this time. ROS: 14:17 Constitutional: Negative for fever, chills, and weight loss, Eyes: Negative for injury, ps1 pain, redness, and discharge, ENT: Negative for injury, pain, and discharge, Cardiovascular: Negative for chest pain, palpitations, and edema, Respiratory: Negative for shortness of breath, cough, wheezing, and pleuritic chest pain, Abdomen/GI: Negative for abdominal pain, nausea, vomiting, diarrhea, and constipation. 14:17 Neuro: Positive for paresthesias from PN. . 14:17 Psych: Positive for anxiety. Exam: 14:17 Constitutional: This is a well developed, well nourished patient who is awake, alert, ps1 and in no acute distress. Head/Face: Normocephalic, atraumatic. Eyes: Pupils equal round and reactive to light, extra-ocular motions intact. Lids and lashes normal. Conjunctiva and sclera are non-icteric and not injected. Chest/axilla: Normal chest wall appearance and motion. Nontender with no deformity. No lesions are appreciated. Cardiovascular: Regular rate and rhythm. No gallops, murmurs, or rubs. Normal PMI, no JVD. No pulse deficits. Respiratory: Lungs have equal breath sounds bilaterally, clear to auscultation and percussion. No rales, rhonchi or wheezes noted. No increased work of breathing, no retractions or nasal flaring. Abdomen/GI: Soft, non-tender, with normal bowel sounds. No distension or tympany. No guarding or rebound. No evidence of tenderness throughout. MS/ Extremity: Pulses equal, no cyanosis. Neurovascular intact. Full, normal range of motion. Neuro: Awake and alert, GCS 15, oriented to person, place, time, and situation. Cranial nerves II-XII grossly intact. Sensory grossly intact. Psych: Awake, alert, with orientation to person, place and time. Behavior, mood, and affect are within normal limits. 14:17 ENT: Dental exam: poor dentition. Vital Signs: 13:38 BP 106 / 90; Pulse 112; Resp 19; Temp 99.2; Pulse Ox 99% on R/A; Weight 70.31 kg; aj Height 5 ft. 2 in. (157.48 cm); 13:38 Body Mass Index 28.35 (70.31 kg, 157.48 cm) aj MDM: 14:20 Data reviewed: vital signs, nurses notes, and as a result, I will discharge patient. ps1 14:22 Patient medically screened. ps1 Administered Medications: No medications were administered Disposition: 02/05/19 14:22 Discharged to Home. Impression: Peripheral Neuropathy, Anxiety. - Condition is Stable. - Discharge Instructions: Peripheral Neuropathy, Diabetic Neuropathy, Type 2 Diabetes Mellitus, Self Care, Adult, [id number]. - Prescriptions for gabapentin 300 mg Oral capsule - take 1 capsule by ORAL route 3 times per day; 60 capsule. Tramadol 50 mg Oral Tablet - take 1 tablet by ORAL route every 8 hours as needed; 12 tablet. - Medication Reconciliation Form, Thank You Letter, Antibiotic Education, Prescription Opioid Use form. - Follow up: Rudolph Santa DO; When: As needed; Reason: Further diagnostic work-up, Recheck today's complaints, Continuance of care, Re-evaluation by your physician. Follow up: Emergency Department; When: As needed; Reason: Worsening of condition. - Problem is an acute exacerbation. - Symptoms are unchanged. Signatures: Kaylee Vides RN RN aj1 Azalea Freitas RN RN aj Vaughn Vizcaino MD MD ps1 Corrections: (The following items were deleted from the chart) 14:58 14:22 02/05/2019 14:22 Discharged to Home. Impression: Peripheral Neuropathy; Anxiety. aj1 Condition is Stable. Forms are Medication Reconciliation Form, Thank You Letter, Antibiotic Education, Prescription Opioid Use. Follow up: Rudolph Santa; When: As needed; Reason: Further diagnostic work-up, Recheck today's complaints, Continuance of care, Re-evaluation by your physician. Follow up: Emergency Department; When: As needed; Reason: Worsening of condition. Problem is an acute exacerbation. Symptoms are unchanged. ps1
== END 2019-02-05 14:58 | disposition home or self-care (01) ==
LOC: ER 13:19
DX: F41.9 Anxiety disorder, unspecified (principal); E11.42 Type 2 diabetes mellitus with diabetic polyneuropathy; Z79.4 Long term (current) use of insulin
CPT/HCPCS: 99282

== ENCOUNTER 2019-06-21 20:56 | Observation (INO) | payer BC ==
[2019-06-21] MEDS ORDERED: ASPIRIN EC 81 MG TAB PO ONE (22:04)
[2019-06-21 22:10] LABS: Absolute Lymphocytes (CBC) 2.1 K/uL (0.7-4.9); Basophils % 0.4 % (0-1.3); Hematocrit 43.7 % (39.6-49.0); Lymphocytes % 24.3 % (15.3-44.8); MPV 10.2 fL (7.6-11.3); RBC Red Blood Cell Count 4.85 M/uL (4.33-5.43)
[2019-06-21 22:21] LABS: Protime INR 1.04
[2019-06-21 22:31] LABS: Albumin 3.6 g/dL (3.4-5.0); Bilirubin Direct 0.1 mg/dL (0-0.2); Bilirubin Total 0.4 mg/dL (0.2-1.0); Potassium 3.9 mmol/L (3.5-5.1); Protein, Total 7.8 g/dL (6.4-8.2)
[2019-06-21] MEDS ORDERED: LORazepam 2 MG/ML VIAL ONE (22:32)
[2019-06-21 22:33] LABS: Magnesium 2.3 mg/dL (1.8-2.4); Troponin (Emerg Dept Use Only) < 0.02 ng/mL (0.0-0.045)
[2019-06-21 23:43] LABS: Urine Blood NEGATIVE (NEG); Urine Glucose 2+ (NEG); Urine Protein NEGATIVE (NEG); Urine Specific Gravity 1.015 (1.005-1.030)
[2019-06-21 23:43] LABS: Barbiturates NEGATIVE (NEGATIVE); Benzodiazepines NEGATIVE (NEGATIVE); Cocaine NEGATIVE (NEGATIVE); METHAMPHETAM NEGATIVE (NEGATIVE); Methadone NEGATIVE (NEGATIVE); Opiates NEGATIVE (NEGATIVE); Phencyclidine NEGATIVE (NEGATIVE); THC Cannibis NEGATIVE (NEGATIVE)
[2019-06-22] MEDS ORDERED: ALPRAZOLAM 1 MG TABLET ONE (00:10)
--- NOTE | 2019-06-22 02:10 | ER ---
Nurse's Notes [facility] Name: Bran Arnold Sr Age: 43 yrs Sex: Male : 1975 Arrival Date: 06/21/2019 Time: 20:58 Bed 15 Private MD: Diagnosis: Chest pain. Uncontrolled twitching Presentation: 06/21 20:58 Presenting complaint: Patient states: that he is having sharp chest pain (center) that fc does not radiate. Positive for shortness of breath but denies any nausea or vomiting. Transition of care: patient was not received from another setting of care. Onset of symptoms was June 21, 2019 at 20:45. Risk Assessment: Do you want to hurt yourself or someone else? Patient reports no desire to harm self or others. Care prior to arrival: None. 20:58 Method Of Arrival: Ambulatory fc 20:58 Acuity: PRESLEY 3 22:09 Initial Sepsis Screen: Does the patient meet any 2 criteria? No. Patient's initial mg2 sepsis screen is negative. Does the patient have a suspected source of infection? No. Patient's initial sepsis screen is negative. Triage Assessment: 21:06 General: Appears comfortable, slender, Behavior is calm, cooperative, appropriate for fc age. Pain: Complains of pain in chest Pain currently is 6 out of 10 on a pain scale. at worst was 10 out of 10 on a pain scale. Quality of pain is described as pressure, sharp, Pain began 30 min ago. Is continuous. EENT: No deficits noted. Neuro: Level of Consciousness is awake, alert, obeys commands, Oriented to person, place, time, situation, Appropriate for age. Cardiovascular: Reports chest pain, shortness of breath, Heart tones S1 S2 Capillary refill < 3 seconds Pulses are all present. Rhythm is regular. Respiratory: Reports shortness of breath Airway is patent Respiratory effort is even, unlabored, Respiratory pattern is regular, symmetrical. GI: Patient currently denies abdominal pain, nausea, vomiting. : No deficits noted. Derm: Skin is pink, warm \T\ dry. Musculoskeletal: Circulation, motion, and sensation intact. Capillary refill < 3 seconds, Range of motion: intact in all extremities. Historical: - Allergies: 21:03 No Known Allergies; fc - Home Meds: 21:03 Tresiba FlexTouch U-200 200 unit/mL (3 mL) subcutaneous inpn 60 unit nightly [Active]; fc Farxiga 10 mg Oral tab 1 tab once daily [Active]; Victoza 2-Lei 0.6 mg/0.1 mL (18 mg/3 mL) subcutaneous pnij 0.2 mL once daily [Active]; atorvastatin 20 mg Oral tab 1 tab once daily [Active]; gabapentin 300 mg oral cap 1 cap 3 times per day [Active]; - PMHx: 21:03 Anxiety; Diabetes - IDDM; Depression; neuropathy; High Cholesterol; fc - PSHx: 21:03 Hernia repair; fc - Immunization history:: Last tetanus immunization: unknown, Flu vaccine is not up to date. - Social history:: Smoking status: Patient/guardian denies using tobacco, Patient/guardian denies using alcohol, street drugs. - Ebola Screening: : Patient negative for fever greater than or equal to 101.5 degrees Fahrenheit, and additional compatible Ebola Virus Disease symptoms Patient denies exposure to infectious person Patient denies travel to an Ebola-affected area in the 21 days before illness onset. Screenin:04 Abuse screen: Denies threats or abuse. Nutritional screening: No deficits noted. fc Tuberculosis screening: No symptoms or risk factors identified. Fall Risk None identified. Assessment: 22:08 General: Appears in no apparent distress. comfortable, Behavior is calm, cooperative. mg2 Pain: Complains of pain in chest Pain does not radiate. Pain currently is 5 out of 10 on a pain scale. Quality of pain is described as aching, Pain began gradually, 1 hour ago. Is intermittent. Neuro: Level of Consciousness is awake, alert, obeys commands, Oriented to person, place, time, situation. Cardiovascular: Capillary refill < 3 seconds Patient's skin is warm and dry. Respiratory: Airway is patent Respiratory effort is even, unlabored, Respiratory pattern is regular, symmetrical. GI: No signs and/or symptoms were reported involving the gastrointestinal system. : No signs and/or symptoms were reported regarding the genitourinary system. EENT: No signs and/or symptoms were reported regarding the EENT system. Derm: Skin is intact, is healthy with good turgor, Skin is pink, warm \T\ dry. normal. Musculoskeletal: Circulation, motion, and sensation intact. Capillary refill < 3 seconds. 06/22 01:11 Reassessment: Patient appears in no apparent distress at this time. No changes from rv previously documented assessment. Patient and/or family updated on plan of care and expected duration. Pain level reassessed. Patient is alert, oriented x 3, equal unlabored respirations, skin warm/dry/pink. 02:37 Reassessment: Patient appears in no apparent distress at this time. Patient and/or rv family updated on plan of care and expected duration. Pain level reassessed. Patient is alert, oriented x 3, equal unlabored respirations, skin warm/dry/pink. patient is for admission for further monitoring and management. Dr Meyers talked to the patient and family. Vital Signs: 06/21 21:03 BP 121 / 81; Pulse 101; Resp 16; Temp 97.9(O); Pulse Ox 99% on R/A; Weight 67.13 kg fc (R); Height 5 ft. 2 in. (157.48 cm) (R); Pain 6/10; 22:00 BP 118 / 84; Pulse 97; Resp 12; Pulse Ox 99% on R/A; rv 23:00 BP 124 / 81; Pulse 100; Resp 16; Pulse Ox 99% on R/A; rv 06/22 00:00 BP 116 / 86; Pulse 97; Resp 17; Pulse Ox 98% on R/A; rv 01:00 BP 111 / 88; Pulse 97; Resp 16; Pulse Ox 99% on R/A; rv 02:00 BP 119 / 80; Pulse 83; Resp 17; Pulse Ox 95% on R/A; rv 02:30 BP 123 / 72; Pulse 73; Resp 16; Pulse Ox 99% on R/A; rv 06/21 21:03 Body Mass Index 27.07 (67.13 kg, 157.48 cm) ED Course: 06/21 20:58 Patient arrived in ED. ds1 21:00 Triage completed. fc 21:03 Arm band placed on Patient placed in waiting room, Patient notified of wait time. fc 21:34 Hernandez Gan MD is Attending Physician. pkl 21:57 XRAY Chest (1 view) In Process Unspecified. EDMS 22:08 No provider procedures requiring assistance completed. Inserted saline lock: 20 gauge mg2 in right antecubital area, using aseptic technique. Blood collected. Patient maintains SpO2 saturation greater than 95% on room air. 22:09 Patient has correct armband on for positive identification. senior staff consultant on. Pulse mg2 ox on. NIBP on. 22:53 Gatito Babcock, CRYS is Primary Nurse. rv 06/22 02:04 Eliecer Meyers DO is Hospitalizing Provider. pkl 03:02 Patient admitted, IV remains in place. rv Administered Medications: 06/21 22:07 Drug: Aspirin 162 mg Route: PO; mg2 06/22 02:39 Follow up: Response: No adverse reaction rv 06/21 22:45 Drug: Ativan 1 mg Route: IVP; Site: left forearm; rv 06/22 02:39 Follow up: Response: No adverse reaction rv 00:15 Drug: XANax Tablet 1 mg Route: PO; rv 02:38 Follow up: Response: No adverse reaction rv Outcome: 02:10 Decision to Hospitalize by Provider. pkl 03:02 Admitted to Med/surg accompanied by nurse, via wheelchair, room 211, with chart, Report rv called to sue laboy 03:02 Condition: good 03:02 Instructed on the need for admit. 03:32 Patient left the ED. rv Signatures: Dispatcher [employer] EDMS Hernandez Gan MD MD pkl Chretien, Felicia, RN RN fc [place], Demi [facility] Chandana Corrales RN RN mg2 Gatito Babcock, RN RN rv Corrections: (The following items were deleted from the chart) 06/21 21:16 21:03 Arm band placed on Patient placed in an exam room, on a stretcher, [facility]
--- NOTE | 2019-06-22 02:11 | EDPHYS ---
Physician Documentation [facility] Name: Bran Arnold Sr Age: 43 yrs Sex: Male : 1975 Arrival Date: 06/21/2019 Time: 20:58 Bed 15 Private MD: ED Physician Hernandez Gan HPI: 06/21 21:42 This 43 yrs old Male presents to ER via Ambulatory with complaints of Chest pkl Pain. 21:42 The patient or guardian reports chest pain that is located primarily in the substernal pkl area. Onset: just prior to arrival, 1 hour(s) ago. The pain radiates to neck. Associated signs and symptoms: Pertinent positives: diaphoresis, shortness of breath. The chest pain is described as a pressure, squeezing. The patient has not experienced similar symptoms in the past. Historical: - Allergies: 21:03 No Known Allergies; fc - Home Meds: 21:03 Tresiba FlexTouch U-200 200 unit/mL (3 mL) subcutaneous inpn 60 unit nightly [Active]; fc Farxiga 10 mg Oral tab 1 tab once daily [Active]; Victoza 2-Lei 0.6 mg/0.1 mL (18 mg/3 mL) subcutaneous pnij 0.2 mL once daily [Active]; atorvastatin 20 mg Oral tab 1 tab once daily [Active]; gabapentin 300 mg oral cap 1 cap 3 times per day [Active]; - PMHx: 21:03 Anxiety; Diabetes - IDDM; Depression; neuropathy; High Cholesterol; fc - PSHx: 21:03 Hernia repair; fc - Immunization history:: Last tetanus immunization: unknown, Flu vaccine is not up to date. - Social history:: Smoking status: Patient/guardian denies using tobacco, Patient/guardian denies using alcohol, street drugs. - Ebola Screening: : Patient negative for fever greater than or equal to 101.5 degrees Fahrenheit, and additional compatible Ebola Virus Disease symptoms Patient denies exposure to infectious person Patient denies travel to an Ebola-affected area in the 21 days before illness onset. ROS: 21:42 Eyes: Negative for injury, pain, redness, and discharge, ENT: Negative for injury, pkl pain, and discharge, Neck: Negative for injury, pain, and swelling. 21:42 Cardiovascular: Positive for chest pain. 21:42 Respiratory: Positive for shortness of breath. 21:42 Abdomen/GI: Negative for abdominal pain, nausea, vomiting, and diarrhea. 21:42 Back: Negative for acute changes. 21:42 : Negative for urinary symptoms. 21:42 MS/extremity: Negative for acute changes. 21:42 Skin: Negative for rash. 21:42 Neuro: Negative for altered mental status, loss of consciousness. Exam: 21:42 Head/Face: Normocephalic, atraumatic. Eyes: Pupils equal round and reactive to light, pkl extra-ocular motions intact. Lids and lashes normal. Conjunctiva and sclera are non-icteric and not injected. Cornea within normal limits. Periorbital areas with no swelling, redness, or edema. ENT: Nares patent. No nasal discharge, no septal abnormalities noted. Tympanic membranes are normal and external auditory canals are clear. Oropharynx with no redness, swelling, or masses, exudates, or evidence of obstruction, uvula midline. Mucous membranes moist. Neck: Trachea midline, no thyromegaly or masses palpated, and no cervical lymphadenopathy. Supple, full range of motion without nuchal rigidity, or vertebral point tenderness. No Meningismus. Chest/axilla: Normal chest wall appearance and motion. Nontender with no deformity. No lesions are appreciated. Cardiovascular: Regular rate and rhythm with a normal S1 and S2. No gallops, murmurs, or rubs. Normal PMI, no JVD. No pulse deficits. Respiratory: Lungs have equal breath sounds bilaterally, clear to auscultation and percussion. No rales, rhonchi or wheezes noted. No increased work of breathing, no retractions or nasal flaring. Abdomen/GI: Soft, non-tender, with normal bowel sounds. No distension or tympany. No guarding or rebound. No evidence of tenderness throughout. Back: No spinal tenderness. No costovertebral tenderness. Full range of motion. Skin: Warm, dry with normal turgor. Normal color with no rashes, no lesions, and no evidence of cellulitis. MS/ Extremity: Pulses equal, no cyanosis. Neurovascular intact. Full, normal range of motion. Neuro: Awake and alert, GCS 15, oriented to person, place, time, and situation. Cranial nerves II-XII grossly intact. Motor strength 5/5 in all extremities. Sensory grossly intact. Cerebellar exam normal. Normal gait. Vital Signs: 21:03 BP 121 / 81; Pulse 101; Resp 16; Temp 97.9(O); Pulse Ox 99% on R/A; Weight 67.13 kg fc (R); Height 5 ft. 2 in. (157.48 cm) (R); Pain 6/10; 22:00 BP 118 / 84; Pulse 97; Resp 12; Pulse Ox 99% on R/A; rv 23:00 BP 124 / 81; Pulse 100; Resp 16; Pulse Ox 99% on R/A; rv 06/22 00:00 BP 116 / 86; Pulse 97; Resp 17; Pulse Ox 98% on R/A; rv 01:00 BP 111 / 88; Pulse 97; Resp 16; Pulse Ox 99% on R/A; rv 02:00 BP 119 / 80; Pulse 83; Resp 17; Pulse Ox 95% on R/A; rv 02:30 BP 123 / 72; Pulse 73; Resp 16; Pulse Ox 99% on R/A; rv 06/21 21:03 Body Mass Index 27.07 (67.13 kg, 157.48 cm) MDM: 06/21 21:34 Patient medically screened. pkl 06/22 02:01 Data reviewed: vital signs, nurses notes, lab test result(s), EKG, radiologic studies, pkl plain films. 06/21 21:40 Order name: Basic Metabolic Panel; Complete Time: 22:59 pkl 06/21 21:40 Order name: CBC with Diff; Complete Time: 22:29 pkl 06/21 21:40 Order name: LFT's; Complete Time: 22:59 pkl 06/21 21:40 Order name: Magnesium; Complete Time: 22:59 pkl 06/21 21:40 Order name: NT PRO-BNP; Complete Time: 22:59 pkl 06/21 21:40 Order name: PT-INR; Complete Time: 22:59 pkl 06/21 21:40 Order name: Troponin (emerg Dept Use Only); Complete Time: 22:59 pkl 06/21 21:40 Order name: XRAY Chest (1 view) pkl 06/21 21:47 Order name: Hemoglobin A1c pkl 06/21 21:47 Order name: UDS; Complete Time: 23:44 pkl 06/21 23:32 Order name: Urine Dipstick--Ancillary (enter results); Complete Time: 23:44 em1 06/21 23:48 Order name: Troponin (emerg Dept Use Only); Complete Time: 00:59 pkl 06/21 21:40 Order name: EKG; Complete Time: 21:42 pkl 06/21 21:40 Order name: Cardiac monitoring; Complete Time: 22:07 pkl 06/21 21:40 Order name: EKG - Nurse/Tech; Complete Time: 22:07 pkl 06/21 21:40 Order name: IV Saline Lock; Complete Time: 22:07 pkl 06/21 21:40 Order name: Labs collected and sent; Complete Time: 22:07 pkl 06/21 21:40 Order name: O2 Per Protocol; Complete Time: 22:08 pkl 06/21 21:40 Order name: O2 Sat Monitoring; Complete Time: 22:08 pkl 06/21 23:48 Order name: EKG; Complete Time: 23:49 pkl Administered Medications: 06/21 22:07 Drug: Aspirin 162 mg Route: PO; mg2 06/22 02:39 Follow up: Response: No adverse reaction rv 06/21 22:45 Drug: Ativan 1 mg Route: IVP; Site: left forearm; rv 06/22 02:39 Follow up: Response: No adverse reaction rv 00:15 Drug: XANax Tablet 1 mg Route: PO; rv 02:38 Follow up: Response: No adverse reaction rv Disposition: 06/22/19 02:10 Hospitalization ordered by Eliecer Meyers for Observation. Preliminary diagnosis is Chest pain. Uncontrolled twitching. - Bed requested for Telemetry/MedSurg (observation). - Status is Observation. rv - Condition is Stable. - Problem is new. - Symptoms are unchanged. UTI on Admission? No Signatures: Dispatcher [employer] EDMS Hernandez Gan MD MD pkl Chretien, Felicia, RN RN fc Garcia, Cindy, RN RN cg Chandana Corrales RN RN mg2 Gatito Babcock RN RN rv Corrections: (The following items were deleted from the chart) 02:49 02:10 Hospitalization Ordered by Eliecer Meyers DO for Observation. Preliminary cg diagnosis is Chest pain. Uncontrolled twitching. Bed requested for Telemetry/MedSurg (observation). Status is Observation. Condition is Stable. Problem is new. Symptoms are unchanged. UTI on Admission? No. pkl 03:32 02:49 06/22/2019 02:10 Hospitalization Ordered by Eliecer Meyers DO for Observation. rv Preliminary diagnosis is Chest pain. Uncontrolled twitching. Bed requested for Telemetry/MedSurg (observation). Status is Observation. Condition is Stable. Problem is new. Symptoms are unchanged. UTI on Admission? No. cg
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
[2019-06-22] MEDS ORDERED: D50W 25 GM/50 ML SYRINGE IV PRN (03:24)
[2019-06-22] MEDS ORDERED: GLUCAGON 1 MG/VIAL IM PRN (03:24)
[2019-06-22] MEDS ORDERED: ACETAMINOPHEN 500 MG TAB PO PRN (03:24)
[2019-06-22] MEDS ORDERED: ONDANSETRON 4 MG/2 ML VIAL IV PRN (03:24)
[2019-06-22] MEDS ORDERED: ALPRAZOLAM 0.5 MG TABLET PO PRN (03:24)
[2019-06-22] MEDS ORDERED: NA CHLORIDE 0.9% 500 ML IV ONE (03:24)
[2019-06-22] MEDS ORDERED: GABAPENTIN 100 MG CAP PO PRN (03:24)
[2019-06-22 03:27] VITALS: BMI 26.2
[2019-06-22] MEDS: NA CHLORIDE 0.9% 1,000 ML IV SCH ×2 (03:30→09:58)
[2019-06-22 04:22] LABS: CKMB Creatine Kinase MB < 1.0 ng/mL (0.3-3.6); Creatine Phosphokinase 57 U/L (39-308); Troponin I < 0.02 ng/mL (0.0-0.045)
[2019-06-22] MEDS ORDERED: DIPHENHYDRAMINE 12.5MG/5ML LIQ ONE (05:13)
[2019-06-22] MEDS: INSULIN -REGULAR HUMAN 50 UNIT/0.5 ML ML SQ SCH ×2 (07:30→13:16)
[2019-06-22] MEDS ORDERED: FAMOTIDINE 20 MG TAB PO SCH (09:00)
[2019-06-22] MEDS ORDERED: ASPIRIN EC 81 MG TAB PO SCH (09:00)
[2019-06-22] MEDS ORDERED: ENOXAPARIN 40 MG/0.4 ML SQ SCH (09:00)
[2019-06-22] MEDS ORDERED: INFLUENZA VACCINE (for 3y+) 0.5 ML DOSE IMVAC ONE (09:00)
[2019-06-22 10:46] VITALS: O2SAT 98
--- NOTE | 2019-06-22 10:46 | EKG ---
Test Date: 2019-06-21 Test Time: 21:05:27 Call Worker Person: ANGELES MEASUREMENT RESULTS: Intervals: Rate: 102 NM: 128 QRSD: 92 QT: 344 QTc: 448 [place]: P: 42 NM: 128 QRS: 88 T: 62 INTERPRETIVE STATEMENTS: Sinus tachycardia Otherwise normal ECG Compared to ECG 01/25/2018 15:03:29 Sinus rhythm no longer present Electronically Signed On 06-22-19 10:45:57 CDT by Josue Hinton
--- NOTE | 2019-06-22 11:47 | RAD REPORT ---
EXAM DESCRIPTION: Linda Single View06/21/2019 9:57 pm CLINICAL HISTORY: Chest pain COMPARISON: 2018 FINDINGS: The lungs appear clear of acute infiltrate. The heart is normal size IMPRESSION: No acute abnormalities displayed
[2019-06-22 13:39] LABS: CKMB Creatine Kinase MB < 1.0 ng/mL (0.3-3.6); Creatine Phosphokinase 50 U/L (39-308); Troponin I < 0.02 ng/mL (0.0-0.045)
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
[2019-06-22 15:20] VITALS: BP 125/80; TEMP 98.4
[2019-06-22] MEDS ORDERED: ATORVASTATIN 40 MG TAB PO SCH (21:00)
[2019-06-22] MEDS ORDERED: INSULIN GLARGINE 100 UNITS/ML SQ SCH (21:00)
--- NOTE | 2019-06-23 04:50 | DS ---
Date of Discharge: 06/22/2019 Discharge Diagnoses: 1.Chest pain, acute coronary syndrome ruled out. 2.Diabetes mellitus type 2, insulin requiring with hyperglycemia. 3.Hyperlipidemia. 4.Generalized anxiety. 5.Diabetic retinopathy. 6.Diabetic neuropathy. Hospital Course: Patient is a 43-year-old male with past medical history of diabetes that is not wel l controlled with neuropathy, retinopathy, hyperlipidemia, generalized anxiety which is also not well controlled, comes in with chest pain. Patient was admitted to the hospital and ACS was ruled out. His cardiac enzymes were negative. Patient did have mild elevation of his kidney function, which at baseline seems to be normal. Patient was counseled regarding his diabetes. His anxiety medication m ay need to be adjusted in the future given hydroxyzine to use at bedtime as an outpatient. Patient w as seen by Cardiology, did not recommend any intervention at this time, recommends outpatient followu p for echo and stress test. EKG did not show any KS or any other acute changes. There was some disc repancy in the reports due to the system not being working appropriately and confirmed with Dr. Ceci bonilla. No acute changes on EKG. Patient was counseled regarding his diabetes, provided diabetic educati on, and needs to have his podiatry and retina check yearly. Patient was then cleared for discharge. His pain had resolved. Medications: As per medication reconciliation list. Followup: Follow up with primary care physician in 2-3 days. Follow up with technical clerk, Dr. Ceci bonilla, in 1 week. Return to ER for worsening condition. Diet: Diabetic. Activity: No driving or operating heavy machinery while on sedative medications such as Atarax. Physical Examination: General: Awake, alert, oriented, no acute distress. CV: S1, S2. No murmurs. Respiratory: Moving air well bilaterally with no wheezing. Gastrointestinal: Abdomen is soft, nontender, nondistended. Positive bowel sounds. Extremities: No clubbing, cyanosis, or edema. Neurologic: Nonfocal. SA/MODL Voice ID: [id number] Report ID: [id number]
== END 2019-06-22 14:45 | disposition home or self-care (01) ==
LOC: ER 20:56 → ERHOLD 06-22 02:30 → 2ND 06-22 03:00
PROVIDERS: ADMIT Family Medicine; ATTEND Family Medicine
DX: R07.9 Chest pain, unspecified (principal); E11.65 Type 2 diabetes mellitus with hyperglycemia; E78.5 Hyperlipidemia, unspecified; F41.9 Anxiety disorder, unspecified; E11.319 Type 2 diabetes mellitus with unspecified diabetic retinopathy without macular edema; E11.40 Type 2 diabetes mellitus with diabetic neuropathy, unspecified
CPT/HCPCS: 93005; 87040 ×2; 85025; 80048; 36415; 83735; 82550 ×2; 87205; 85610; 82962 ×2; 80076; 80307 ×8; 84443; 81003; 84484 ×4; 82553 ×2; 84439; 84145; 83880; 71045; 96374; 99285; J1650; J7030 ×2; G0378 ×2; Q2035